=== PATIENT | female | born 1990 | race Caucasian/White ===

== ENCOUNTER 2019-10-21 19:48 | Emergency (ER) | payer BC, OTHER ==
[2019-10-21 20:06] VITALS: BP 121/68
--- NOTE | 2019-10-21 20:12 | UC ---
Upper Extremity HPI - HPI Summary HPI Summary: 3 days ago, woke with pain in right shoulder which started to then migrate to her upper right chest today. Feels pain and tightness, especially when she breathes. she is a smoker. she last used albuterol yesterday which did help w / the breathing but not the pain. sh eis not on control. She was recently sick w/ a cough. Some pain relief with Tylenol Patient smokes. Intermittent non productive cough. - History of Current Complaint Chief Complaint: UCRespiratory Stated Complaint: SHOULDER/RIB/BACK PAIN Time Seen by Provider: 10/21/19 19:59 Hx Obtained From: Patient Hx Last Menstrual Period: 10/16/19 Onset/Duration: Sudden Onset Pain Intensity: 4 Pain Scale Used: 0-10 Numeric Character: Aching Aggravating Factor(s): Movement, Other - breathing Alleviating Factor(s): OTC Meds, Other: - albuterol - Allergies/Home Medications Allergies/Adverse Reactions: Allergies Allergy/AdvReac Type Severity Reaction Status Date / Time No Known Allergies Allergy Verified 10/21/19 20:06 Home Medications: Home Medications Acetaminophen [Acetaminophen Extra Strength] 1,000 mg PO DAILY 10/21/19 [ History Confirmed 10/21/19] Buprenorphine HCl/Naloxone HCl [Suboxone 12 mg-3 mg Sl Film] 1 each SL DAILY [History Confirmed 10/21/19] Gabapentin CAP(*) [Neurontin 400 mg CAP(*)] 800 mg PO TID 10/21/19 [History Confirmed 10/21/19] lamoTRIgine [Lamictal] 50 mg PO DAILY 10/21/19 [History Confirmed 10/21/19] PMH/Surg Hx/FS Hx/Imm Hx Previously Healthy: Yes Respiratory History: Asthma - Surgical History Surgical History: None - Family History Known Family History: Positive: Non-Contributory - Social History Alcohol Use: None Substance Use Type: None Smoking Status (MU): Heavy Every Day Tobacco Smoker Household Exposure Type: Cigarettes Review of Systems All Other Systems Reviewed And Are Negative: Yes Constitutional: Negative: Fever, Chills, Fatigue Skin: Negative: Rash Respiratory: Positive: Cough, Other - R upper chest pain. Negative: Shortness Of Breath Cardiovascular: Negative: Palpitations, Chest Pain Motor: Negative: Decreased ROM, Weakness Musculoskeletal: Positive: Arthralgia - r shoulder pain. Negative: Myalgia Physical Exam Triage Information Reviewed: Yes Appearance: Well-Appearing Vital Signs: Initial Vital Signs Temp 97.5 F 10/21/19 20:00 Pulse 73 10/21/19 20:00 Resp 16 10/21/19 20:00 BP 121/68 10/21/19 20:00 Pulse Ox 100 10/21/19 20:00 Vital Signs Reviewed: Yes Eyes: Positive: Conjunctiva Clear Neck: Positive: Supple Respiratory: Positive: No accessory muscle use, Wheezing - fine intermittent inspiratory, Other: - reproducible R upper chest pain Skin: Negative: Rashes Upper Extremity Course/Dx - Course Course Of Treatment: R upper chest pain that is reproducible on exam. With recent URi likely costochondritis which I disc w/ her. There was also some wheezing but she is not using albuterol as often as she should. Suggested she use albuterol more often to help w/ wheezing as well. she is not tachycardic or hypoxic. Advised to go to ED if worsening. - Differential Dx/Diagnosis Differential Diagnosis/HQI/PQRI: Other Provider Diagnosis: Costochondritis Discharge ED - Sign-Out/Discharge Documenting (check all that apply): Patient Departure All imaging exams completed and their final reports reviewed: No Studies - Discharge Plan Condition: Good Disposition: HOME Patient Education Materials: Costochondritis (ED) Referrals: Ligia Russell MD [Primary Care Provider] - Additional Instructions: If shortness of breath worsens or calf pain appears please go directly to the Emergency room Please use albuterol more often as prescribed. - Billing Disposition and Condition Condition: GOOD Disposition: Home
== END 2019-10-21 21:01 | disposition home or self-care (01) ==
LOC: UCCORT 19:48
DX: M94.0 Chondrocostal junction syndrome [Tietze] (principal); J45.909 Unspecified asthma, uncomplicated; F17.210 Nicotine dependence, cigarettes, uncomplicated
CPT/HCPCS: 99211; G0463